=== PATIENT | male | born 1990 | race Caucasian/White ===

== ENCOUNTER 2020-06-16 23:57 | Emergency (ER) | payer BC, SELFPAY ==
[2020-06-17 00:09] LABS: Glucose Point of Care 110 (65-105)
--- NOTE | 2020-06-17 00:09 | ED.AMS ---
HPI - Altered Mental Status General Chief Complaint: Altered Mental Status Stated Complaint: AMS Time Seen by Provider: 06/17/20 00:08 Source: patient Mode of arrival: ambulatory Limitations: no limitations History of Present Illness HPI narrative: Patient is a 30-year-old male with a history of diabetes insipidus taking desmopressin who presents for evaluation of alcohol intoxication. Patient reportedly drinks over several drinks tonight of hard alcohol, and took an extra desmopressin because he thought he would disrupt his diabetes insipidus if he did not take additional medication. He took 1 extra tablet around 5:30 pm this evening. He has been nauseous and vomiting over the past hour. Patient was not trying to harm himself, no homicidal or suicidal ideation. Patient reporting mild abdominal pain and nausea. He denies headache, dysuria, fever or chills. No falls or head trauma. Related Data Allergies Allergy/AdvReac Type Severity Reaction Status Date / Time No Known Allergies Allergy Verified 06/17/20 00:15 Review of Systems Review of Systems: Narrative: CONSTITUTIONAL: Denies fever, chills, or sweats. EYES: Denies visual changes ENT: Denies rhinorrhea, congestion, sore throat, or otalgia. CARDIOVASCULAR: Denies chest pain, palpitations, or edema. RESPIRATORY: Denies cough or dyspnea. GASTROINTESTINAL: Reports abdominal pain, nausea and vomiting GENITOURINARY: Denies dysuria or hematuria. SKIN: Denies rash or itching. MUSCULOSKELETAL: Denies back pain, joint pain, or myalgia. NEUROLOGIC: Denies headache, numbness, or weakness. PSYCHIATRIC: Denies suicidal ideation [facility] Past Medical History Medical History (Updated 06/17/20 @ 03:33 by Tammi Michel MD) Diabetes insipidus Surgical History Surgical History (Updated 06/17/20 @ 00:23 by Tammi Michel MD) No pertinent past surgical history Social History Social History (Updated 06/17/20 @ 00:23 by Tammi Michel MD) Alcohol intake: current Gender identity (if verbalized by the patient): Male Exam Narrative: Exam Narrative: GENERAL: Awake, alert, conversant, mildly intoxicated HEAD: Normocephalic, atraumatic. EYES: PERRLA and EOMI. ENT: Nares clear, no rhinorrhea or epistaxis. Mucous membranes moist. NECK: Supple. CHEST: No respiratory distress, breathing even and non labored HEART: Regular rate, sinus rhythm ABDOMEN:Non distended, non tender to palpation in all 4 quadrants, no rebound or guarding EXTREMITIES: Normal range of motion. No edema. SKIN: Warm, dry, no rash. NEURO:No focal deficits. Alert and oriented x3. Course Vital Signs Vital signs: Vital Signs Temperature 36.8 C 06/17/20 00:12 Pulse Rate 74 06/17/20 00:12 Respiratory Rate 20 06/17/20 00:12 Blood Pressure 129/85 06/17/20 00:12 Pulse Oximetry 100 06/17/20 00:12 Temperature 36.8 C 06/17/20 00:12 Pulse Rate 59 L 06/17/20 03:35 Respiratory Rate 20 06/17/20 03:35 Blood Pressure 121/73 06/17/20 03:35 Pulse Oximetry 100 06/17/20 03:35 MDM - Altered Mental Status MDM Narrative Medical decision making narrative: Patient presented for evaluation of alcohol intoxication in the setting of accidentally ingesting an extra desmopressin tablet. At the time of assessment, ABCs are intact and vital signs are stable. Patient is mildly intoxicated. No focal neurological deficits. Laboratory work-up reassuring. No severe hyponatremia. Spoke with poison control, patient ingested the tablets around 5:30 PM, presented to restaurant midnight, they stated peak effect of the desmopressin would be an hour to 90 minutes after ingestion, so we are much outside the window of the peak effect. Given no hyponatremia, we can control symptoms with antiemetic, fluids. Patient was monitored in the emergency department over a period of over 3 hours and did well. No recurrent vomiting. He was able to ambulate with a narrow base, steady gait. Patient's came to pic
[2020-06-17 00:12] VITALS: BP 129/85; PULSE 74; RESP 20; TEMP 36.8; O2SAT 100
[2020-06-17 00:37] VITALS: BP 126/71; PULSE 55; RESP 20; O2SAT 94
[2020-06-17] MEDS: SODIUM CHLORIDE 0.9% IV 2,000 ML 999 ML IV CONT (00:38)
[2020-06-17 00:49] LABS: Basophils Absolute Auto 0.1 K/mm3 (0.0-0.1); Basophils Percent Auto 0.7 % (0.2-1.2); Eosinophils Absolute Auto 0.1 K/mm3 (0-0.3); Eosinophils Percent Auto 1.4 % (0-4.4); Hematocrit 36.9 % (42.0-52.0); Hemoglobin 12.9 g/dL (14.0-18.0); Immature Granulocyte Absolute 0.04 K/mm3 (0.00-0.031); Immature Granulocyte Percent A 0.4 % (0-0.5); Lymphocytes Absolute Auto 3.87 K/mm3 (0.9-3.2); Lymphocytes Percent Auto 41.3 % (18.3-44.2); Mean Corpuscular Hemoglobin 29.3 pg (26-34); Mean Corpuscular Volume 83.7 fl (80-100); Mean Platelet Volume 9.2 fl (7.4-10.4); Monocytes Absolute Auto 0.4 K/mm3 (0.1-0.6); Monocytes Percent Auto 4.7 % (2.6-8.5); Neutrophils Absolute Auto 4.8 K/mm3 (1.3-6.7); Neutrophils Percent Auto 51.5 % (45.5-73.1); Platelet Count Result 287 k/mm3 (150-375); Red Blood Count 4.41 M/mm3 (4.6-6.20); Red Cell Distribution Width 13.2 % (11.5-14.5); White Blood Count 9.4 K/mm3 (4.5-10.0)
[2020-06-17 01:06] LABS: Alanine Aminotransferase 26 U/L (4-50); Albumin Level 4.3 g/dL (3.5-5.1); Alkaline Phosphatase 74 U/L (38-126); Anion Gap 16.3 mmol/L (7-16); Aspartate Amino Transferase 29 U/L (17-59); Bilirubin,Total 0.1 mg/dL (0.2-1.3); Blood Urea Nitrogen 10 mg/dL (9-20); Calcium 8.4 mg/dL (8.4-10.2); Carbon Dioxide 21 mmol/L (22-30); Chloride 101 mmol/L (98-107); Estimated Glomerular Filt Rate > 60; Ethanol 210 mg/dL (<10); Glucose 111 mg/dL (75-110); Lipase 68 U/L (23-300); Potassium 3.3 mmol/L (3.4-5.0); Sodium 135 mmol/L (137-145)
[2020-06-17 01:39] VITALS: BP 114/61; PULSE 63; RESP 20; O2SAT 98
[2020-06-17 02:00] LABS: Add Urine Microscopic? YES; Appearance Urine Clear (Clear); Bilirubin Urine Negative (Negative); Blood Urine 2+ (Negative); Color Urine Colorless (Yellow); Glucose Urine UA Negative (Negative); Ketones Urine Negative (Negative); Leukocyte Esterase Ur Negative LEU/UL (Negative); Nitrate Urine Negative (Negative); Protein Urine Negative (Negative); RBC Urine 0-2 /hpf (0-2); Specific Grav Ur 1.008 (1.001-1.035); Urobilinogen Urine Negative mg/dL (<2.0); WBC Urine 0-3 /hpf
[2020-06-17 02:28] VITALS: BP 121/60; PULSE 60; RESP 20; O2SAT 98
[2020-06-17 03:29] VITALS: BP 119/82; PULSE 69; RESP 20; O2SAT 100
[2020-06-17 03:35] VITALS: BP 121/73; PULSE 59; RESP 20; O2SAT 100
[2020-06-17 04:04] LABS: Amphetamine Screen Urine Negative (Negative); Barbiturate Screen Urine Negative (Negative); Benzodiazepines Screen Urine Negative (Negative); Cannabinoid Screen Urine Negative (Negative); Cocaine Screen Urine Negative (Negative); Methadone Screen Urine Negative (Negative); Opiate Screen Urine Negative (Negative); Phencyclidine Screen Urine Negative (Negative)
== END 2020-06-17 03:40 | disposition home or self-care (01) ==
PROVIDERS: Emergency Provider Emergency Medicine
DX: F10.129 Alcohol abuse with intoxication, unspecified (principal); E23.2 Diabetes insipidus; Y90.7 Blood alcohol level of 200-239 mg/100 ml
CPT/HCPCS: 36415; 80053; 80307; 81001; 83690; 85025; 96365; 96366; 99284; J3411; J3475; J7030; J7121